=== PATIENT | male | born 1940 | race Two or more races ===

== ENCOUNTER 2017-02-08 06:32 | Outpatient (CLI) ==
--- NOTE | 2017-02-08 09:02 | ECHOSTRESS ---
Date of Exam: 02/08/17 Ordering Physician: BARTOLOME DANIELLE Reason for Echo: CHEST PAIN, SOB, DIZZINESS, STRESS TEST--NO ISCHEMIA M-Mode Normal Adult Results LV Dimensions Normal Adult Results AoV Opening excursions >1.6 LVEDD-base- 3.5-5.8 Ao root dimensions 2.0-3.7 LVESD-base- 3.1-4.6 L. Atrium dimensions 1.9-3.8 Post. Wall thickness 0.8-1.1 IV septum (thickness) 0.7-1.2 Post. Wall excursion 0.72-1.3 Septal motion Systolic motion R. Ventricular cavity 1.5-2.0 LVEF 60% Paradoxical septal wall motion 2-D: MILDLY HYPOKINETIC LEFT VENTRICLE AND NORMAL LEFT VENTRICULAR CONTRACTILITY POST EXERCISE M-MODE: MV: AV: TV: PV: CHAMBER SIZE: WALL MOTION: MILDLY HYPOKINETIC LEFT VENTRICLE AND NORMAL LEFT VENTRICULAR CONTRACTILITY POST EXERCISE PERICARDIUM: INTERPRETATION: 1. MILDLY HYPOKINETIC LEFT VENTRICLE AND NORMAL LEFT VENTRICULAR CONTRACTILITY POST EXERCISE MTDD
--- NOTE | 2017-02-08 10:40 | STRESSMOD ---
Ordering Physician: BARTOLOME DANIELLE Date of Test: 02/08/17 Medical History: CHEST PAIN, SOB, DIZZINESS Current Medications: KLONOPIN, PANOPRAZOLE, CALAN, VASOTEC, ASA Physical Findings: S1, S2 Resting EKG: SINUS RHYTHM/NO ACUTE CHANGES Target Heart Rate: 120/142 STAGE MPH/GRADE HEART RATE BPM BLOOD PRESSURE mmhg RHYTHM S-T SEGMENT UP DOWN SYMPTOMS,COMMENTS At Rest 70 138/82 SR X NONE 1 1.7/0% 93 142/80 SR X NONE 2 1.7/5% 100 145/85 SR X NONE 3 1.7/10% 4 2.5/12% 5 3.4/14% 6 4.2/16% 7 5.18% Immediately after 122 150/88 SR X FATIGUE Total Time: 9:35 Maximum Heart Rate Reached: 122 Reason for Termination: FATIGUE 3 MINUTES POST EXERCISE: HR 65 BPM, BP 160/80 MMHG ____ INTERPRETATION: 98% OXYGEN SATURATION WITH EXERCISE ON ROOM AIR METS 6.0 1. NO EVIDENCE OF ISCHEMIA BY ST-T WAVE CHANGES 2. FEW PVC'S NOTED--LESS WITH EXERCISE 3. NO CHEST PAIN OR DISCOMFORT 4. BLOOD PRESSURE RESPONSES NORMAL WITH EXERCISE MILDLY HYPOKINETIC LEFT VENTRICLE AT REST AND IMPROVED LEFT VENTRICULAR CONTRACTILITY WITH EXERCISE MTDD
== END 2017-02-08 06:33 | disposition home or self-care (01) ==
LOC: CAR 06:32
PROVIDERS: ATTEND Internal Medicine
DX: R07.9 Chest pain, unspecified (principal); R06.02 Shortness of breath; R42 Dizziness and giddiness

== ENCOUNTER 2017-02-11 07:40 | Outpatient (CLI) ==
--- NOTE | 2017-02-11 08:48 | CT ---
EXAM: CT of the abdomen pelvis with contrast History: Abdominal pain. Technique: Multiplanar CT images through the abdomen pelvis were obtained following administration of IV contrast Findings: Borderline enlarged heart. Coronary artery calcifications. Dependent atelectasis seen a t the lung bases. Osteopenia. No acute osseous abnormalities. Cholelithiasis. No focal liver or splenic lesions. 4.8 cm duodenal diverticulum. No abnormal enha ncement of the pancreas. 1.2 cm left adrenal nodule at 1.1 cm right adrenal nodule. 1 cm cyst with in the right kidney and 1 cm cyst within the left kidney. No enhancing renal masses. No bowel obst ruction. No bladder wall thickening. Prominent prostate. No perirectal inflammation. Colonic div erticulosis. Fat-containing left inguinal hernia. Right inguinal hernia containing fat and nondilat ed loop of small bowel. No free air and no ascites. Impression: 1. Cholelithiasis. 2. Colonic diverticulosis. 3. Right inguinal hernia containing fat and nondilated loop of bowel. There is no bowel obstructio n. 4. Fat-containing left inguinal hernia. 5. Small bilateral renal cysts. 6. Small bilateral adrenal nodules are nonspecific but probably adenomas. More definitive evaluati on can be obtained with CT or MRI adrenal mass protocol. 7. Duodenal diverticulum. 8. Coronary artery disease.
--- NOTE | 2017-02-11 10:07 | ECHO2D ---
Date of Exam: 02/08/17 Ordering Physician: BARTOLOME DANIELLE Reason for Echo: CHEST PAIN, SOB, DIZZINESS M-Mode Normal Adult Results LV Dimensions Normal Adult Results AoV Opening excursions >1.6 >1.6 LVEDD-base- 3.5-5.8 5.0 Ao root dimensions 2.0-3.7 4.3 LVESD-base- 3.1-4.6 L. Atrium dimensions 1.9-3.8 4.6 Post. Wall thickness 0.8-1.1 1.2 IV septum (thickness) 0.7-1.2 1.2 Post. Wall excursion 0.72-1.3 0.7 Septal motion 0.7 Systolic motion R. Ventricular cavity 1.5-2.0 NORMAL LVEF 60% 45% Paradoxical septal wall motion NORMAL 2-D : VALVES-NORMAL ENLARGED LEFT ATRIAL CAVITY--NORMAL LEFT VENTRICLE SIZE -- NO EFFUSION, NO THROMBUS, MILDLY HYPOKINETIC LEFT VENTRICLE M-MODE: MV: NORMAL AV: NORMAL TV: NORMAL PV: CHAMBER SIZE: ENLARGED LEFT ATRIAL CAVITY WALL MOTION: MILDLY HYPOKINETIC LEFT VENTRICLE PERICARDIUM: NORMAL INTERPRETATION: 1. LEFT VENTRICULAR HYPERTROPHY, BORDERLINE, WITH ENLARGED LEFT ATRIAL CAVITY ( 4.6 CM2) 2. DILATED AORTIC ROOT (4.3 CM) 3. MILDLY HYPOKINETIC LEFT VENTRICLE (EJECTION FRACTION 45%) 4. NORMAL VALVES MTDD
== END 2017-02-11 07:41 | disposition home or self-care (01) ==
LOC: RAD 07:40
PROVIDERS: ATTEND Internal Medicine
DX: R10.9 Unspecified abdominal pain (principal)